=== PATIENT | male | born 1985 | race Caucasian/White ===

== ENCOUNTER → 2019-03-19 | Emergency (ER) | payer OTHER ==
[~2019-03-19] VITALS: Ht 162.6 cm; Wt 77.1 kg
[~2019-03-19] MED LIST: INTESTINEX1 CAP PO; PREVACID30 MG PO
== END | disposition home or self-care (01) ==
LOC: ER 15:15
DX: S10.83XA Contusion of other specified part of neck, initial encounter (principal); S30.0XXA Contusion of lower back and pelvis, initial encounter; M54.5 Low back pain; M54.2 Cervicalgia; V49.88XA Car occupant (driver) (passenger) injured in other specified transport accidents, initial encounter; Y93.89 Activity, other specified; Y92.488 Other paved roadways as the place of occurrence of the external cause; Y99.8 Other external cause status